=== PATIENT | female | born 1995 | race Caucasian/White ===

== ENCOUNTER 2018-01-31 17:48 | Emergency (ER) | payer MEDICAID ==
[~2018-01-31] VITALS: Ht 160 cm; Wt 59.4 kg
[2018-01-31 18:12] VITALS: Ht 160 cm; Wt 59.4 kg
[2018-01-31 18:57] LABS: BASOPHIL % 0.2 % (0-2); PLATELET COUNT 229 x10^3mcL (130-400); RED CELL DISTRIBUTION WIDTH 12.5 % (11.5-14.5)
[2018-01-31 19:07] LABS: CALCIUM 8.9 mg/dL (8.5-10.1); CARBON DIOXIDE 25.1 mmol/L (21-32); CHLORIDE SERUM 106 mmol/L (98-107); CREATININE SERUM 0.6 mg/dL (0.6-1.0); GFR1 > 60 mL/min; GLUCOSE SERUM 99 mg/dL (74-106); POTASSIUM SERUM 3.5 mmol/L (3.5-5.1); SODIUM SERUM 142 mmol/L (136-145)
[2018-01-31 19:11] LABS: ALBUMIN 3.8 g/dL (3.4-5.0); ALKALINE PHOSPHATASE 74 U/L (46-116); ALT/SGPT 20 U/L (14-59); AST/SGOT 16 U/L (15-37); BILIRUBIN TOTAL 1.06 mg/dL (0.20-1.00); TOTAL PROTEIN, SERUM 7.1 g/dL (6.4-8.2)
[2018-01-31 19:58] LABS: AMPHETAMINE QUAL UR NONE DETECTED (See below)
[2018-02-01 00:29] VITALS: BP 122/77
== END 2018-02-01 00:29 | disposition home or self-care (01) ==
LOC: ED 17:48
PROVIDERS: Emergency Medicine
DX: R45.851 Suicidal ideations (principal); F31.9 Bipolar disorder, unspecified; F10.10 Alcohol abuse, uncomplicated; F90.9 Attention-deficit hyperactivity disorder, unspecified type
CPT/HCPCS: 36415; G0480

== ENCOUNTER 2018-02-12 22:29 | Emergency (ER) | payer MEDICAID ==
[2018-02-12 23:19] LABS: BASOPHIL % 0.3 % (0-2); PLATELET COUNT 226 x10^3mcL (130-400); RED CELL DISTRIBUTION WIDTH 12.5 % (11.5-14.5)
[2018-02-12 23:26] LABS: CALCIUM 9.2 mg/dL (8.5-10.1); CARBON DIOXIDE 25.7 mmol/L (21-32); CHLORIDE SERUM 106 mmol/L (98-107); CREATININE SERUM 0.6 mg/dL (0.6-1.0); GFR1 > 60 mL/min; GLUCOSE SERUM 107 mg/dL (74-106); POTASSIUM SERUM 3.8 mmol/L (3.5-5.1); SODIUM SERUM 139 mmol/L (136-145)
[2018-02-13] MEDS ORDERED: ACETAMINOPHEN-H1 TA1 PO (01:07)
[2018-02-13] MEDS ORDERED: VITAMIN-D1000 IU PO (01:08)
[2018-02-13] MEDS ORDERED: PEPCID20 MG PO (01:08)
[2018-02-13] MEDS ORDERED: ZOF4 PO (01:09)
[2018-02-13] MEDS ORDERED: SIMVASTATIN10 M1 PO (01:10)
[2018-02-13] MEDS ORDERED: HUMALOG KW100 UNIT/1 SQ (01:11)
[2018-02-13 09:13] VITALS: BP 114/44
== END 2018-02-13 09:13 | disposition home or self-care (01) ==
LOC: ED 22:29
PROVIDERS: Emergency Medicine Emergency Medical Services
DX: R45.851 Suicidal ideations (principal); F31.9 Bipolar disorder, unspecified; F90.9 Attention-deficit hyperactivity disorder, unspecified type
CPT/HCPCS: 36415; G0480; Q0177

== ENCOUNTER 2018-04-16 20:48 | Emergency (ER) | payer MEDICAID ==
[~2018-04-16 20:48] MED LIST: ACETAMINOPHEN-H1 TA1 PO; HUMALOG KW100 UNIT/1 SQ; PEPCID20 MG PO; SIMVASTATIN10 M1 PO; VITAMIN-D1000 IU PO; ZOF4 PO
== END 2018-04-16 21:55 | disposition left against medical advice (07) ==
LOC: ED 20:48
DX: Z53.21 Procedure and treatment not carried out due to patient leaving prior to being seen by health care provider (principal)